=== PATIENT | male | born 1980 | race Caucasian/White ===

== ENCOUNTER 2023-10-01 17:00 | Outpatient (CLI) | payer OTHER | END 2023-10-01 17:01 | disposition home or self-care (01) | LOC: SLEEPLAB 17:00 | PROVIDERS: ATTEND Family Medicine | DX: G47.9 Sleep disorder, unspecified (principal); G47.10 Hypersomnia, unspecified; R53.83 Other fatigue; E11.9 Type 2 diabetes mellitus without complications; R06.83 Snoring; G47.00 Insomnia, unspecified | CPT/HCPCS: 95800 ==